=== PATIENT | male | born 1995 | race Caucasian/White ===

== ENCOUNTER 2016-12-09 10:19 | Emergency (ER) | payer MEDICAID ==
[2016-12-09] MEDS ORDERED: Sodium Chloride 0.9% 10 ML Syringe FLUSH PRN (11:24)
[2016-12-09] MEDS ORDERED: Ondansetron 4 MG Tab.DIS PO ONE (11:25)
--- NOTE | 2016-12-09 11:38 | EDM.PDOC ---
ED HPI GENERAL MEDICAL PROBLEM - General Chief Complaint: General Stated Complaint: PERSISTENT HEADACHE Time Seen by Provider: 12/09/16 10:25 Source of Information: Reports: Patient History Limitations: Reports: No Limitations - History of Present Illness INITIAL COMMENTS - FREE TEXT/NARRATIVE: According to patient the was having intercourse last night and towards the climax he started have neck stiffness and tension and by the time he was having orgasm he had severe throbbing headache, which slightly improved after. He did take some motrin. he still has a dull achyheadache in the frontal region of the head. No nausea or vomiting. he has never had this in the past. Was not on any street drugs or sexual enhancement medication last night. No other complaints. No dizziness, weakness, or tingling and numbness. - Related Data Allergies Allergy/AdvReac Type Severity Reaction Status Date / Time No Known Allergies Allergy Verified 08/31/15 17:46 Home Meds: Home Meds Amoxicillin 500 mg PO TID 04/15/16 [History] Past Medical History HEENT History: Reports: Other (See Below) Other HEENT History: minor ring in ears and some blurred vision at times, does wear glasses at times Cardiovascular History: Reports: Afib, Arrhythmia, Hypertension Other Cardiovascular History: ablation for a fib Other Respiratory History: MILD SOB Psychiatric History: Reports: Anxiety, Depression, Panic Attack - Infectious Disease History Infectious Disease History: Reports: Chicken Pox, Scarlet Fever - Past Surgical History HEENT Surgical History: Reports: Adenoidectomy, Myringotomy w Tube(s) Cardiovascular Surgical History: Reports: Other (See Below) Social & Family History - Family History Family Medical History: Noncontributory Cardiac: Reports: Aneurysm, Angina, Arrhythmia, Bypass, Heart Failure, High Cholesterol, Hypertension, Pacemaker, Prior Cardiac Arrest, SOB on Exertion, Stent, Syncope Respiratory: Reports: Asthma, Sleep Apnea GI: Reports: Bowel Obstruction, Chronic Diarrhea, Colon Polyps, Diverticulitis, Diverticulosis, GERD, Hepatitis, Hiatal Hernia, Inflammatory Bowel Disease, Irritable Bowel Syndrome : Reports: UTI, Recurrent OBGYN: Reports: Dysfunctional uterine bleeding, Ectopic , Endometrial Ablation, Endometriosis, Recurrent Spontaneous Musculoskeletal: Reports: Arthritis, Back pain, Chronic, Fibromyalgia, Gout, Neck Pain, Chronic, Osteoporosis Neurological: Reports: Alzheimers Disease, CVA, Neuropathy, Diabetic, Seizure, Vertigo Psychiatric: Reports: Abuse, Victim of, Anxiety, Bipolar, Depression, Emotional Problems, Hallucinations, Mood Swings, OCD, Panic Attack, PTSD, Schizophrenia, Suicide Attempt Endocrine/Metabolic: Reports: Diabetes, type II, Osteopenia Hematologic: Reports: Anemia - Tobacco Use Smoking Status *Q: Never Smoker Second Hand Smoke Exposure: No - Caffeine Use Caffeine Use: Reports: Soda - Recreational Drug Use Recreational Drug Use: No ED ROS GENERAL - Review of Systems Review Of Systems: See Below Constitutional: Denies: Fever, Chills HEENT: Denies: Ear Pain, Hearing Loss, Rhinitis, Sinus Problem, Throat Pain, Throat Swelling, Vertigo, Vision Change Respiratory: Denies: Shortness of Breath, Cough, Sputum Cardiovascular: Denies: Chest Pain, Dyspnea on Exertion, Edema, Lightheadedness GI/Abdominal: Denies: Abdominal Pain, Nausea, Vomiting : Denies: Flank Pain, Frequency Musculoskeletal: Reports: Neck Pain. Denies: Shoulder Pain, Arm Pain, Joint Pain, Joint Swelling Skin: Denies: Pruritis, Rash Neurological: Reports: Headache. Denies: Confusion, Dizziness, Numbness, Paresthesia, Syncope, Tingling, Weakness, Gait Disturbance ED EXAM, GENERAL - Physical Exam Exam: See Below Exam Limited By: No Limitations General Appearance: Alert, WD/WN, No Apparent Distress Eye Exam: Bilateral Eye: EOMI, PERRL Ears: Normal External Exam, Normal Canal, Hearing Grossly Normal, Normal TMs Ear Exam: Bilateral Ear: Erythema Nose: Normal Inspection, Normal Mucosa, No Blood Throat/Mouth: Normal Inspection, Normal Lips, Normal Teeth, Normal Gums, Normal Oropharynx, Normal Voice, No Airway Compromise Head: Atraumatic, Normocephalic Neck: Normal Inspection, Supple, Full Range of Motion, Other (mild parapspianl msucle tendernes. Good flexionand extension of the neck No neck stiffness) Respiratory/Chest: No Respiratory Distress, Lungs Clear, Normal Breath Sounds, No Accessory Muscle Use, Chest Non-Tender Cardiovascular: Normal Peripheral Pulses, Regular Rate, Rhythm, No Edema, No Gallop, No JVD, No Murmur, No Rub Peripheral Pulses: 2+: Radial (L), Radial (R) Back Exam: Normal Inspection, Full Range of Motion, NT Extremities: Normal Inspection, Normal Range of Motion, Non-Tender, Normal Capillary Refill, No Pedal Edema Neurological: Alert, Oriented, CN II-XII Intact, Normal Cognition, Normal Gait, Normal Reflexes, No Motor/Sensory Deficits Course - Vital Signs Text/Narrative:: Pt's clinical exam is normal. Vitals are stable. Normal neuro exam today. Has mild paraspinal neck muscle, No meningeal signs. Pt has had post coital headache. advised to drink 1-2 cups of coffee if this happens and also to take exedrine migraine tablet. if it continue to happen with every intercourse, needs to be seen in the clinic for possible CT head. As this was his first episode, i have reassured patient. Departure - Departure Time of Disposition: 11:00 Disposition: Home, Self-Care 01 Condition: good Clinical Impression: Headache associated with orgasm - Discharge Information Forms: ED Department Discharge - Problem List & Annotations (1) Headache associated with orgasm SNOMED Code(s): 255325648 Code(s): G44.82 - HEADACHE ASSOCIATED WITH SEXUAL ACTIVITY Status: Acute Current Visit: Yes - Problem List Review Problem List Initiated/Reviewed/Updated: Yes - Assessment/Plan Assessment:: Post coital headache Plan: Pt's clinical exam is normal. Vitals are stable. Normal neuro exam today. Has mild paraspinal neck muscle, No meningeal signs. Pt has had post coital headache. advised to drink 1-2 cups of coffee if this happens and also to take exedrine migraine tablet. if it continue to happen with every intercourse, needs to be seen in the clinic for possible CT head. As this was his first episode, i have reassured patient.
[2016-12-09 13:02] VITALS: BP 159/86
== END 2016-12-09 10:50 | disposition home or self-care (01) ==
LOC: LB.ED 10:19
DX: G44.82 Headache associated with sexual activity (principal); I48.91 Unspecified atrial fibrillation; I10 Essential (primary) hypertension; Z98.890 Other specified postprocedural states
CPT/HCPCS: 99282; 99283

== ENCOUNTER 2016-12-10 20:25 | Emergency (ER) | payer MEDICAID ==
[2016-12-10] MEDS ORDERED: traMADol 50 MG Tab ONE (20:35)
[2016-12-10] MEDS ORDERED: Cyclobenzaprine 10 MG Tab ONE (20:35)
[2016-12-10 22:53] VITALS: BP 146/93
--- NOTE | 2016-12-11 12:39 | CT ---
DATE OF SERVICE: 12/10/16 CLINICAL DATA: AMOS for 2 days and unable to resolve UNENHANCED BRAIN CT: Multislice acquisition through the brain without IV contrast was performed. No priors. No masses or mass effect. No intracranial hemorrhage. No evidence of acute or subacute infarct. No osseous abnormalities. There is partial opacification of the ethmoid sinus air cells. IMPRESSION: No acute intracranial abnormalities. [id number] [facility]
--- NOTE | 2016-12-13 17:02 | EDM.PDOC ---
ED HPI GENERAL MEDICAL PROBLEM - General Chief Complaint: Headache Stated Complaint: headache Time Seen by Provider: 12/10/16 20:45 Source of Information: Reports: Patient History Limitations: Reports: No Limitations - History of Present Illness INITIAL COMMENTS - FREE TEXT/NARRATIVE: This is a 21yo M presenting to the ER with continued headaches. Patient states he has had the headache since his last ER visit with no resolution. He denies the AMOS getting worse. Denies other concerns and denies syncope or lightheadedness or visual changes. Onset: Sudden Duration: Day(s):, Constant Location: Reports: Head Severity: Moderate Improves with: Reports: None Worsens with: Reports: None Context: Reports: Activity Associated Symptoms: Reports: Headaches Treatments CHRONIC DISEASE MANAGER: Reports: NSAIDS Head Pain Score (Numeric/FACES): 2 - Related Data Allergies Allergy/AdvReac Type Severity Reaction Status Date / Time No Known Allergies Allergy Verified 12/10/16 20:41 Home Meds: Home Meds NK [No Known Home Meds] 12/10/16 [History] Past Medical History HEENT History: Reports: Other (See Below) Other HEENT History: minor ring in ears and some blurred vision at times, does wear glasses at times Cardiovascular History: Reports: Afib, Arrhythmia, Hypertension Other Cardiovascular History: ablation for a fib Respiratory History: Reports: SOB Other Respiratory History: MILD SOB Psychiatric History: Reports: Anxiety, Depression, Panic Attack - Infectious Disease History Infectious Disease History: Reports: Chicken Pox, Influenza - Past Surgical History HEENT Surgical History: Reports: Adenoidectomy, Myringotomy w Tube(s) Cardiovascular Surgical History: Reports: Other (See Below) Social & Family History - Family History Family Medical History: Noncontributory Cardiac: Reports: Aneurysm, Angina, Arrhythmia, Bypass, Heart Failure, High Cholesterol, Hypertension, Pacemaker, Prior Cardiac Arrest, SOB on Exertion, Stent, Syncope Respiratory: Reports: Asthma, Sleep Apnea GI: Reports: Bowel Obstruction, Chronic Diarrhea, Colon Polyps, Diverticulitis, Diverticulosis, GERD, Hepatitis, Hiatal Hernia, Inflammatory Bowel Disease, Irritable Bowel Syndrome : Reports: UTI, Recurrent OBGYN: Reports: Dysfunctional uterine bleeding, Ectopic , Endometrial Ablation, Endometriosis, Recurrent Spontaneous Musculoskeletal: Reports: Arthritis, Back pain, Chronic, Fibromyalgia, Gout, Neck Pain, Chronic, Osteoporosis Neurological: Reports: Alzheimers Disease, CVA, Neuropathy, Diabetic, Seizure, Vertigo Psychiatric: Reports: Abuse, Victim of, Anxiety, Bipolar, Depression, Emotional Problems, Hallucinations, Mood Swings, OCD, Panic Attack, PTSD, Schizophrenia, Suicide Attempt Endocrine/Metabolic: Reports: Diabetes, type II, Osteopenia Hematologic: Reports: Anemia - Tobacco Use Smoking Status *Q: Never Smoker Second Hand Smoke Exposure: No - Caffeine Use Caffeine Use: Reports: Energy Drinks, Soda - Recreational Drug Use Recreational Drug Use: No ED ROS GENERAL - Review of Systems Review Of Systems: ROS reveals no pertinent complaints other than HPI. - Physical Exam Exam: See Below Exam Limited By: No Limitations General Appearance: Alert, WD/WN, Mild Distress Eye Exam: Bilateral Eye: EOMI, PERRL Ears: Normal External Exam Nose: Normal Inspection, Normal Mucosa, No Blood Throat/Mouth: Normal Inspection, Normal Lips, Normal Teeth Head Exam: Scalp Tenderness Neck: Tender Lateral Respiratory/Chest: No Respiratory Distress, Lungs Clear, Normal Breath Sounds Cardiovascular: Normal Peripheral Pulses, Regular Rate, Rhythm GI/Abdominal: Normal Bowel Sounds Neuro Exam (Abbreviated): Alert, Oriented, CN II-XII Intact Back Exam: Normal Inspection Extremities: Normal Inspection Psychiatric: Normal Affect, Normal Mood Skin Exam: Warm, Dry, Intact Course - Vital Signs Last Recorded V/S: Last Vital Signs Temp 37.2 C 12/10/16 20:37 Pulse 109 H 12/10/16 20:37 Resp 18 12/10/16 20:37 BP 146/93 H 12/10/16 20:37 Pulse Ox 100 12/10/16 20:37 - Orders/Labs/Meds Meds: Medications Discontinued Medications Generic Name Dose Route Start Last Admin Trade Name Tamara PRN Reason Stop Dose Admin Cyclobenzaprine HCl 150 mg 12/10/16 20:35 Flexeril .ROUTE 12/10/16 20:36 .STK-MED ONE Tramadol HCl 500 mg 12/10/16 20:35 Ultram .ROUTE 12/10/16 20:36 .STK-MED ONE Departure - Departure Time of Disposition: 22:30 Disposition: Home, Self-Care 01 Condition: Good Clinical Impression: Tension-type headache - Discharge Information Instructions: Blepharospasm Referrals: PCP,None [Primary Care Provider] - Forms: ED Department Discharge - Problem List Review Problem List Initiated/Reviewed/Updated: Yes - Assessment/Plan Plan: Counseled on supportive therapy and conservative care. Discussed trial of relaxation techniques and rest and f/u if symptoms persist for trial of Fiorcet or other management. F/u as needed.
== END 2016-12-10 21:45 | disposition home or self-care (01) ==
LOC: LB.ED 20:25
DX: G44.209 Tension-type headache, unspecified, not intractable (principal); I48.91 Unspecified atrial fibrillation; I10 Essential (primary) hypertension; F41.9 Anxiety disorder, unspecified; F32.9 Major depressive disorder, single episode, unspecified; Z96.22 Myringotomy tube(s) status; Z98.890 Other specified postprocedural states
CPT/HCPCS: 70450; 99284; A9270; 99283

== ENCOUNTER 2017-05-13 21:41 | Emergency (ER) | payer BC, MEDICAID ==
--- NOTE | 2017-05-13 22:18 | EDM.PDOC ---
ED HPI GENERAL MEDICAL PROBLEM - General Chief Complaint: General Stated Complaint: SHORT OF BREATH Time Seen by Provider: 05/13/17 22:05 Source of Information: Reports: Patient, RN History Limitations: Reports: No Limitations - History of Present Illness INITIAL COMMENTS - FREE TEXT/NARRATIVE: 22 yr male presents with shortness of breath. States patchy blotches to arms intermittently. States no sore throat and no cough. States some heartburn and is controlled with Tums as hs. States he stays at home to care for his children and his works. States some loose stools lately. - Related Data Allergies Allergy/AdvReac Type Severity Reaction Status Date / Time No Known Allergies Allergy Verified 05/13/17 21:54 Home Meds: Home Meds NK [No Known Home Meds] 12/10/16 [History] Past Medical History HEENT History: Reports: Impaired Vision, Other (See Below) Other HEENT History: minor ring in ears and some blurred vision at times, does wear glasses at times Cardiovascular History: Reports: Afib, Arrhythmia, Hypertension Other Cardiovascular History: ablation for a fib Respiratory History: Reports: SOB Other Respiratory History: MILD SOB Genitourinary History: Reports: Renal Calculus Psychiatric History: Reports: Anxiety, Depression, Panic Attack - Infectious Disease History Infectious Disease History: Reports: Chicken Pox - Past Surgical History HEENT Surgical History: Reports: Adenoidectomy, Myringotomy w Tube(s) Cardiovascular Surgical History: Reports: Other (See Below) Other Cardiovascular Surgeries/Procedures: Stress echo with few runs of SVT Social & Family History - Family History Family Medical History: Noncontributory Cardiac: Reports: Aneurysm, Angina, Arrhythmia, Bypass, Heart Failure, High Cholesterol, Hypertension, Pacemaker, Prior Cardiac Arrest, SOB on Exertion, Stent, Syncope Respiratory: Reports: Asthma, Sleep Apnea GI: Reports: Bowel Obstruction, Chronic Diarrhea, Colon Polyps, Diverticulitis, Diverticulosis, GERD, Hepatitis, Hiatal Hernia, Inflammatory Bowel Disease, Irritable Bowel Syndrome : Reports: UTI, Recurrent OBGYN: Reports: Dysfunctional uterine bleeding, Ectopic , Endometrial Ablation, Endometriosis, Recurrent Spontaneous Musculoskeletal: Reports: Arthritis, Back pain, Chronic, Fibromyalgia, Gout, Neck Pain, Chronic, Osteoporosis Neurological: Reports: Alzheimers Disease, CVA, Neuropathy, Diabetic, Seizure, Vertigo Psychiatric: Reports: Abuse, Victim of, Anxiety, Bipolar, Depression, Emotional Problems, Hallucinations, Mood Swings, OCD, Panic Attack, PTSD, Schizophrenia, Suicide Attempt Endocrine/Metabolic: Reports: Diabetes, type II, Osteopenia Hematologic: Reports: Anemia - Tobacco Use Smoking Status *Q: Never Smoker Second Hand Smoke Exposure: No - Caffeine Use Caffeine Use: Reports: Soda - Recreational Drug Use Recreational Drug Use: No ED ROS GENERAL - Review of Systems Review Of Systems: See Below Constitutional: Reports: No Symptoms HEENT: Reports: No Symptoms Respiratory: Reports: Shortness of Breath Cardiovascular: Reports: No Symptoms GI/Abdominal: Reports: Other (loose stools and heartburn) : Reports: No Symptoms Musculoskeletal: Reports: Arm Pain Skin: Reports: Other (intermittent blotchiness to arms.) Neurological: Reports: No Symptoms Psychiatric: Reports: No Symptoms Hematologic/Lymphatic: Reports: No Symptoms Free Text/Narrative/Comment: Pt notes blotchiness to left forearm after holding arm over head and skin having pressure to tip of hat, where a metal area is. States this happened after taking out garbage tonight too. ED EXAM, GENERAL - Physical Exam Exam: See Below Exam Limited By: No Limitations General Appearance: Alert, No Apparent Distress Ears: Normal External Exam Ear Exam: Right Ear: TM normal, Left Ear: Other (cerumen,unable to visualize TM) Nose: Normal Inspection Throat/Mouth: Normal Inspection, Normal Lips, Normal Voice, Other (Tonsils 3/4 enlargened) Head: Atraumatic, Normocephalic Neck: Normal Inspection, Supple Respiratory/Chest: No Respiratory Distress, Lungs Clear, Normal Breath Sounds Cardiovascular: Regular Rate, Rhythm Extremities: Normal Range of Motion, Normal Capillary Refill Neurological: Alert, Oriented Skin Exam: Warm, Dry, Normal Color Course - Vital Signs Last Recorded V/S: Last Vital Signs Temp 98.2 F 05/13/17 21:57 Pulse 110 H 05/13/17 22:20 Resp 16 05/13/17 22:20 BP 142/79 H 05/13/17 22:20 Pulse Ox 99 05/13/17 22:20 - Orders/Labs/Meds Orders: Active Orders 24 hr Category Date Time Status COMPREHENSIVE METABOLIC PN,CMP [CHEM] Stat Lab 05/13/17 22:20 Received Labs: Laboratory Tests 05/13/17 Range/Units 22:20 WBC 11.0 D (4.0-11.0) K/uL RBC 5.83 (4.50-6.50) M/uL Hgb 16.4 (13.0-18.0) g/dL Hct 46.1 (40.0-54.0) % MCV 79 (76-96) fL MCH 28.1 (27.0-32.0) pg MCHC 35.6 H (31.0-35.0) g/dL RDW 12.3 (11.0-16.0) % Plt Count 322 (150-400) K/uL MPV 9.4 (6.0-10.0) fL Neut % (Auto) 59.1 (45.0-70.0) % Lymph % (Auto) 30.4 (20.0-40.0) % [place] % (Auto) 8.7 (3.0-10.0) % Eos % (Auto) 1.6 (1.0-5.0) % Baso % (Auto) 0.2 (0.0-0.5) % Neut # (Auto) 6.48 (2.00-7.50) K/uL Lymph # (Auto) 3.33 (1.50-4.00) K/uL [place] # (Auto) 0.95 H (0.20-0.80) K/uL Eos # (Auto) 0.17 (0.04-0.40) K/uL Baso # (Auto) 0.02 (0.02-0.10) K/uL - Re-Assessments/Exams Free Text/Narrative Re-Assessment/Exam: 05/13/17 22:43 Pt sitting up on cot, no shortness of breath. Pt is alert and talking with no problems. Pt notes the blotchiness to arm is a reaction to the ball cap tip where a metal area is. States he wonders if he is reacting to the metal. Area fades easily. 05/13/17 22:51 Reviewed lab results with pt. CBC normal, electrolytes normal, Creatinine and blood sugar slightly elevated. Reassured pt that lab work is ok. States his was concerned with lupus for him with the intermittent blotchiness to arms. 05/13/17 22:53 Pt to Return to ER or clinic for increase in shortness of breath or chest pain or increase in bruising. Pt ambulatory without difficulty. Departure - Departure Time of Disposition: 22:55 Disposition: Home, Self-Care 01 Condition: Good Clinical Impression: Shortness of breath - Discharge Information Forms: ED Department Discharge - My Orders Last 24 Hours: My Active Orders 05/13/17 22:20 COMPREHENSIVE METABOLIC PN,CMP [CHEM] Stat - Assessment/Plan Last 24 Hours: My Active Orders 05/13/17 22:20 COMPREHENSIVE METABOLIC PN,CMP [CHEM] Stat
[2017-05-13 22:30] VITALS: BP 142/79
== END 2017-05-13 22:50 | disposition home or self-care (01) ==
LOC: LB.ED 21:41
DX: R06.02 Shortness of breath (principal); I10 Essential (primary) hypertension
CPT/HCPCS: 36415; 80053; 85025; 99284

== ENCOUNTER 2017-07-28 16:34 | Emergency (ER) | payer BC, MEDICAID ==
[2017-07-28] MEDS ORDERED: Acetaminophen 500 MG Tab ONE (16:55)
[2017-07-28] MEDS ORDERED: Diltiazem 25 MG/5 ML SDV ONE ×2 (16:55)
[2017-07-28] MEDS ORDERED: Aspirin 81 MG Tab.Chew ONE (16:55)
[2017-07-28] MEDS ORDERED: Isosorbide Mononitrate 30 MG Tab.ER ONE (16:55)
[2017-07-28] MEDS ORDERED: Nitroglycerin 0.4 MG Tab.SL ONE (16:55)
[2017-07-28] MEDS ORDERED: Adenosine 12 MG/4 ML SDV ONE ×2 (16:55)
[2017-07-28] MEDS ORDERED: Adenosine 12 MG/4 ML SDV IVPUSH ONE (17:02)
[2017-07-28] MEDS ORDERED: Sodium Chloride 0.9% 1,000 ML IV ONE (17:44)
--- NOTE | 2017-07-28 20:30 | CR ---
DATE OF SERVICE: 07/28/2017 CLINICAL DATA: Chest pain. AP CHEST: Comparison made to a prior exam dated 08/31/2015. The heart size is normal. The lungs are clear. No pneumothorax. No pleural effusions. No areas of consolidation. No evidence of acute intrathoracic disease. [id number] [facility]
--- NOTE | 2017-07-29 00:19 | ER ---
HISTORY OF PRESENT ILLNESS: A 22-year-old male who comes in by ambulance with complaints of chest pain that started last night. He also has had some episodes of headaches that have been on and off, approximately every 20 to 30 minutes. Chest pain has been constant. The patient rates his pain at 8/10. He states that he has had some trouble breathing and has vomited multiple times during the course of the night and into the early part of the morning. He has not vomited in the last several hours. The patient states that he has had some heart history. He had a cardiac ablation done for atrial fibrillation about a year ago. CURRENT MEDICATIONS: None. ALLERGIES: MEDICATION ALLERGIES, NONE. OBJECTIVE: GENERAL APPEARANCE: The patient is awake. He is breathing rapidly. Respirations are approximately 40 per minute. He is slightly shaky. VITAL SIGNS: Reviewed. The patient's initial blood pressure is 160 over 90s. The pulse has been running in the 130s to 140s. He is afebrile. HEENT: Oral mucous membranes slightly dry. Tonsils not enlarged or injected. NECK: Supple. LUNGS: Clear. CARDIAC: Heart sounds distinct. S1, S2 present. Regular rate which is tachy. SKIN: Warm and dry. ABDOMEN: Soft and nontender. LABORATORY DATA: EKG shows SVT with a ventricular rate in the 130s to 140s. INITIAL TREATMENT: Adenosine 6 mg was given IV, this did not control his rate, so we gave 12 mg of adenosine as a second dose; this also did not decrease his fast heart rate. We then followed this with Cardizem 20 mg IV and his heart rate started to come down, came down into the 115 to 120 range over the course of about 20 minutes. We gave a second dose of Cardizem and 1 L of normal saline as a bolus. The labs done on the patient reveal troponin is negative. CBC shows a white count of 15.8. D-dimer is normal. Comprehensive metabolic panel was unremarkable. Chest x-ray is normal. At this point, the patient had not had chest pain since shortly after arriving here. We did give the patient one aspirin within a couple of minutes of getting to the ER and 4 aspirin; his chest pain resolved after that. The patient did not have any chest pain until we got him up to walk around at the end of his stay. His pulse dropped down to just over 100 at rest. With moving around, it went back up to about 110 or 112. The patient states he feels an achiness in the chest, not chest pain but like a bruising sensation. I feel this is angina that is stable. DIAGNOSES: 1. SVT. 2. Stable angina. TREATMENT PLAN: The patient will be started on Imdur, 30 mg was given p.o. here tonight, and I will keep him on 30 mg extended release daily. I also will give him Cardizem CD 120 mg a day. I do want the patient to follow up in the clinic tomorrow. He will need further evaluation. The patient is to go home and rest tonight. He is comfortable when leaving the emergency room without any chest pain. SONA/ARIS /[id number]
[2017-07-29] MEDS ORDERED: Adenosine 12 MG/4 ML SDV ONE (02:28)
== END 2017-07-28 19:54 | disposition home or self-care (01) ==
LOC: LB.ED 16:34
DX: I47.1 Supraventricular tachycardia (principal); I20.9 Angina pectoris, unspecified
CPT/HCPCS: 36415; 71045; 80053; 84484; 85025; 85379; 93005; 96361; 96374; 99284; 99285-25; A0425; A0429; A9270-GY; J0153; J3490; J7030

== ENCOUNTER 2017-09-20 22:02 | Emergency (ER) | payer BC, MEDICAID ==
[2017-09-20 22:12] VITALS: BP 144/92
[2017-09-20] MEDS ORDERED: diphenhydrAMINE 50 MG/ML SDV IM ONE (22:16)
[2017-09-20] MEDS ORDERED: diphenhydrAMINE 50 MG Cap PO ONE (22:16)
--- NOTE | 2017-09-21 11:44 | EDM.PDOC ---
ED HPI GENERAL MEDICAL PROBLEM - General Chief Complaint: General Stated Complaint: throat swelling Time Seen by Provider: 09/20/17 22:30 Source of Information: Reports: Patient History Limitations: Reports: No Limitations - History of Present Illness INITIAL COMMENTS - FREE TEXT/NARRATIVE: According to patient he claims that she went to [employer] in [facility] and ate a burger at 8 Am and went home. But around 9;30 to 10PM he claims he has been having pain over the lateral aspect of the neck and also feels like his throat is closing. he has been able to swallow saliva and drink water, but feels achy in the throat.No chest pain or chest tightness, hoarseness of voice, no wheezing, no skin rash or itching, no stridor,no shortness of breath. No weakness or syncope. No fever or chills. HAs been having nasal congestion since today, also he has been around sick children with URI symptoms. Onset: Today Onset Date: 09/21/17 Onset Time: 22:00 Severity: Mild Associated Symptoms: Denies: Confusion, Chest Pain, Cough, Diaphoresis, Fever/ Chills, Headaches, Loss of Appetite, Malaise, Nausea/Vomiting, Rash, Seizure, Shortness of Breath, Syncope, Weakness - Related Data Allergies Allergy/AdvReac Type Severity Reaction Status Date / Time No Known Allergies Allergy Verified 07/28/17 22:55 Home Meds: Home Meds NK [No Known Home Meds] 12/10/16 [History] Past Medical History HEENT History: Reports: Impaired Vision, Other (See Below) Other HEENT History: minor ring in ears and some blurred vision at times, does wear glasses at times Cardiovascular History: Reports: Afib, Arrhythmia, Hypertension Other Cardiovascular History: ablation for a fib Respiratory History: Reports: SOB Other Respiratory History: MILD SOB Genitourinary History: Reports: Renal Calculus Psychiatric History: Reports: Anxiety, Depression, Panic Attack - Infectious Disease History Infectious Disease History: Reports: Chicken Pox - Past Surgical History HEENT Surgical History: Reports: Adenoidectomy, Myringotomy w Tube(s) Cardiovascular Surgical History: Reports: Other (See Below) Other Cardiovascular Surgeries/Procedures: Stress echo with few runs of SVT Social & Family History - Family History Family Medical History: Noncontributory Cardiac: Reports: Aneurysm, Angina, Arrhythmia, Bypass, Heart Failure, High Cholesterol, Hypertension, Pacemaker, Prior Cardiac Arrest, SOB on Exertion, Stent, Syncope Respiratory: Reports: Asthma, Sleep Apnea GI: Reports: Bowel Obstruction, Chronic Diarrhea, Colon Polyps, Diverticulitis, Diverticulosis, GERD, Hepatitis, Hiatal Hernia, Inflammatory Bowel Disease, Irritable Bowel Syndrome : Reports: UTI, Recurrent OBGYN: Reports: Dysfunctional uterine bleeding, Ectopic , Endometrial Ablation, Endometriosis, Recurrent Spontaneous Musculoskeletal: Reports: Arthritis, Back pain, Chronic, Fibromyalgia, Gout, Neck Pain, Chronic, Osteoporosis Neurological: Reports: Alzheimers Disease, CVA, Neuropathy, Diabetic, Seizure, Vertigo Psychiatric: Reports: Abuse, Victim of, Anxiety, Bipolar, Depression, Emotional Problems, Hallucinations, Mood Swings, OCD, Panic Attack, PTSD, Schizophrenia, Suicide Attempt Endocrine/Metabolic: Reports: Diabetes, type II, Osteopenia Hematologic: Reports: Anemia - Tobacco Use Smoking Status *Q: Never Smoker Second Hand Smoke Exposure: No - Caffeine Use Caffeine Use: Reports: Soda - Recreational Drug Use Recreational Drug Use: No ED ROS GENERAL - Review of Systems Review Of Systems: See Below Constitutional: Denies: Fever, Chills, Night Sweats, Diaphoresis HEENT: Reports: Throat Pain, Throat Swelling. Denies: Eye Discharge, Rhinitis, Vision Change Respiratory: Denies: Shortness of Breath, Wheezing, Pleuritic Chest Pain, Cough , Sputum, Hemoptysis Cardiovascular: Denies: Chest Pain, Lightheadedness GI/Abdominal: Denies: Abdominal Pain, Constipation, Nausea, Vomiting : Denies: Dysuria, Flank Pain, Frequency Musculoskeletal: Denies: Joint Pain, Joint Swelling Skin: Denies: Bruising, Pruritis, Rash, Erythema, Wound Neurological: Denies: Confusion, Dizziness, Headache ED EXAM, GENERAL - Physical Exam Exam: See Below Exam Limited By: No Limitations General Appearance: Alert, WD/WN, No Apparent Distress Eye Exam: Bilateral Eye: EOMI, PERRL Ears: Normal External Exam, Normal Canal, Hearing Grossly Normal, Normal TMs Ear Exam: Bilateral Ear: Auricle Normal, Canal Normal, TM normal Nose: Normal Inspection, Normal Mucosa, No Blood Throat/Mouth: Normal Inspection, Normal Lips, Normal Teeth, Normal Gums, Normal Oropharynx, Normal Voice, No Airway Compromise Head: Atraumatic, Normocephalic Neck: Normal Inspection, Supple, Non-Tender, Full Range of Motion Respiratory/Chest: No Respiratory Distress, Lungs Clear, Normal Breath Sounds, No Accessory Muscle Use, Chest Non-Tender Cardiovascular: Normal Peripheral Pulses, Regular Rate, Rhythm, No Edema, No Gallop, No JVD, No Murmur, No Rub Peripheral Pulses: 2+: Carotid (L), Carotid (R), Radial (L), Radial (R) GI/Abdominal: Normal Bowel Sounds, Soft, Non-Tender, No Organomegaly, No Distention, No Abnormal Bruit, No Mass Extremities: Normal Inspection, Normal Range of Motion, Non-Tender, Normal Capillary Refill, No Pedal Edema Neurological: Alert, Oriented, CN II-XII Intact, Normal Cognition, Normal Gait, Normal Reflexes, No Motor/Sensory Deficits Psychiatric: Normal Affect, Normal Mood Course - Vital Signs Text/Narrative:: Pt claims he ate burger at [facility] which he has always eaten for a long time now. Also he has mild throat pain. His vitals are very stable and also his clinical exam is normal. He does not appear to be having any signs of acute anaphylaxis for food allergies. As he appears stable , I he did receive benadryl 50mg orally and also Zantac 150mg orally in the emergency room. he was able to take his medication and swallow with out any problems. He might be having early URI with throat discomfort, but there is no sign of acute food allergy. Advised to return if his symptoms gets worse, with SOB, hoarseness of voice, stridor occur. Other almonte might be developing URi, advised rest and hydration. Followup with his PCP in clinic next week. Last Recorded V/S: Last Vital Signs Temp 98.3 F 09/20/17 22:08 Pulse 99 09/20/17 22:08 Resp 12 09/20/17 22:08 BP 144/92 H 09/20/17 22:08 Pulse Ox 99 09/20/17 22:08 - Orders/Labs/Meds Meds: Medications Discontinued Medications Generic Name Dose Route Start Last Admin Trade Name Marcosq PRN Reason Stop Dose Admin Diphenhydramine HCl 50 mg 09/20/17 22:16 Benadryl IM 09/20/17 22:17 ONETIME ONE Diphenhydramine HCl 50 mg 09/20/17 22:16 09/20/17 22:22 Benadryl PO 09/20/17 22:17 50 mg ONETIME ONE Administration Ranitidine HCl 150 mg 09/21/17 20:00 09/20/17 22:22 Zantac PO 150 mg BEDTIME ALINA Administration Departure - Departure Time of Disposition: 23:00 Disposition: Home, Self-Care 01 Condition: Good Clinical Impression: Throat discomfort - Discharge Information Instructions: Food Allergy Referrals: PCP,None [Primary Care Provider] - Forms: ED Department Discharge Additional Instructions: Buy Zantac 150mg and Benadryl 50mg over the counter if needed for feeling of swelling to back of throat. Take daily as needed until feeling of throat and tongue swelling subsides. - Problem List & Annotations (1) Throat discomfort SNOMED Code(s): 268905942 Code(s): R07.0 - PAIN IN THROAT Status: Acute - Problem List Review Problem List Initiated/Reviewed/Updated: Yes - Assessment/Plan Assessment:: throat discomfort Plan: Pt claims he ate burger at [facility] which he has always eaten for a long time now. Also he has mild throat pain. His vitals are very stable and also his clinical exam is normal. He does not appear to be having any signs of acute anaphylaxis for food allergies. As he appears stable , I he did receive benadryl 50mg orally and also Zantac 150mg orally in the emergency room. he was able to take his medication and swallow with out any problems. He might be having early URI with throat discomfort, but there is no sign of acute food allergy. Advised to return if his symptoms gets worse, with SOB, hoarseness of voice, stridor occur. Other almonte might be developing URi, advised rest and hydration. Followup with his PCP in clinic next week.
== END 2017-09-20 22:30 | disposition home or self-care (01) ==
LOC: LB.ED 22:02
DX: R07.0 Pain in throat (principal); I10 Essential (primary) hypertension
CPT/HCPCS: 96372; 99282-25; A9270-GY